=== PATIENT | female | born 1935 | race Caucasian/White ===

== ENCOUNTER 2016-08-24 18:20 | Observation (INO) | payer OTHER, MEDICARE ==
[~2016-08-24] VITALS: Ht 162.6 cm; Wt 75.7 kg
--- NOTE | 2016-08-24 18:42 | NUR ---
PT TO ED C/O HIGH BP, HEADACHE. STATES SHE SAW "A FLUTTER" IN HER RIGHT EYE, USED EYE DROPS AND IT WENT AWAY. THEN PT STATES SHE TOOK HER BP AND IT WAS 185/94. C/O "ZAP" TO RIGHT SIDE OF HEAD NOW. 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
--- NOTE | 2016-08-24 19:09 | ED GENERAL ADULT ---
History of Present Illness General Chief Complaint: Headache Stated Complaint: STATES HAS HIGH B/P WITH HOFFMAN Source: patient, family Exam Limitations: no limitations Vital Signs & Intake/Output Vital Signs & Intake/Output Vital Signs Date Time Temp Pulse Resp B/P B/P Pulse O2 O2 Flow FiO2 Mean Ox Delivery Rate 08/25 0018 96.8 76 20 170/80 97 Room Air 08/24 2320 97.0 73 16 187/89 95 Room Air 08/24 2226 71 12 174/86 98 Room Air 08/24 2141 174/82 08/24 2102 160/70 08/24 2102 174/82 08/24 1842 97.8 83 20 166/78 98 Room Air ED Intake and Output 08/25 0000 08/24 1200 Intake Total Output Total Balance Patient 167 lb Weight Weight Estimated Measurement Method Allergies Coded Allergies: cefaclor (UNKNOWN MD TOLD PT SHE IS ALLERGIC 08/24/16) epinephrine (HEART RACES 08/24/16) erythromycin base (UNKNOWN PER PT 08/24/16) Reconcile Medications Acetaminophen (Tylenol Extra Strength) 500 MG TABLET 2 TAB PO DAILY PRN PAIN (Reported) Aspirin (Ecotrin*) 81 MG TABLET.DR 1 TAB PO DAILY HEART/BLOOD (Reported) [BAKING SODA] 0.25 TSP PO PRN INDIGESTION (Reported) Cholecalciferol (Vitamin D3) (Vitamin D) 2,000 UNIT CAPSULE 2 CAP PO DAILY SUPPLEMENT (Reported) Mag Hydrox/Al Hydrox/Simeth (Maalox Advanced Suspension) (Unknown Strength) ORAL.SUSP (Unknown Dose) PO PRN INDIGESTION (Reported) Triage Note: PT TO ED C/O HIGH BP, HEADACHE. STATES SHE SAW "A FLUTTER" IN HER RIGHT EYE, USED EYE DROPS AND IT WENT AWAY. THEN PT STATES SHE TOOK HER BP AND IT WAS 185/94. C/O "ZAP" TO RIGHT SIDE OF HEAD NOW. 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 Triage Nurses Notes Reviewed? yes Onset: Gradual Duration: minute(s): (10) Timing: no prior history Injury Environment: home Severity: moderate Severity Numbers: 7 Modifying Factors: Improves With: other (TIME). HPI: Patient is an 81-year-old female presenting to the emergency department sheet complaining of right-sided headache, associated visual changes and hypertension And earlier today around 5:45 PM. Patient reports that she had just woken up from a nap and was sitting there and started getting some flutters in her right eye and then noticed some pain on the right side of her head that is sharp and stabbing in nature. Symptoms lasted about 10 minutes and then resolves. Patient did use eyedrops that it helped. Denies any current visual changes. Denies any confusion any change in capabilities of speaking, no weakness. No history of high blood pressure but she did take her blood pressure during these events and it was ABOUT 185/90. She just saw her primary care physician last for a checkup and her blood pressure was normal. She does not take any daily blood pressure medications. Denies any dizziness. History of stroke. No recent travel or surgeries. Denies any recent sinus congestion. No history of migraines. Denies any numbness or tingling. No weakness or pain in the arms or legs. Denies any jaw pain. Denies any associated chest pain shortness of breath or palpitations. No abdominal pain. She's been able TO EAT or drink without difficulties. Patient reports that pain has subsided, only lasted 10 minutes. (ANUSHKA MA) Past History Travel History Traveled to [place] past 21 day No Medical History Any Pertinent Medical History? see below for history Surgical History Surgical History: non-contributory Psychosocial History What is your primary language Zimbabwean Tobacco Use: Quit >30 days ago ETOH Use: denies use Illicit Drug Use: denies illicit drug use Family History Hx Contributory? No (ANUSHKA MA) Review of Systems Review of Systems Constitutional: Reports: no symptoms. Comments Review of systems: See HPI, All other systems negative. Constitutional, no chills fever or weight loss HEENT: No visual changes no sore throat no congestion Cardiovascular: No chest pain ,palpitation , orthopnea or ankle swelling Skin, no jaundice no rashes Respiratory: No dyspnea cough sputum or hemoptysis GI: No nausea no vomiting : No dysuria No hematuria Muscle skeletal: no back pain, no neck pain, Neurologic: No numbness no confusion Psych: No stress anxiety or depression,. Heme/endocrine: No bruising no bleeding no polyuria or polydipsia Immunology: No splenectomy or history of AIDS (ANUSHKA MA) Physical Exam Physical Exam General Appearance: well developed/nourished, no apparent distress, alert, awake , comfortable Comments: Well-developed well-nourished person in no acute distress HEENT: Normal EENT exam, extraocular motion intact, no nystagmus. Pupils equally round and reactive to light and accommodation. Nose is atraumatic. External auditory canal and Tympanic membranes clear. Pharynx normal. No swelling or edema. NO PAIN TO PALPATION OVER SCALP. Funduscopic: Somewhat limited secondary to no dilation prior to exam, NO OBVIOUS RETINAL DETACHMENT or venous NICKING. Neck: Supple, no lymphadenopathy, normal range of motion without pain or tenderness, NO C SPINE TENDERNESS. Back: Nontender Cardiovascular: Regular rate and rhythms no murmurs rubs or gallops, normal JVP Respiratory: Chest nontender. No respiratory distress.breath sounds clear to auscultation bilaterally Abdomen: Soft, nontender nondistended, no appreciable organomegaly. Normal bowel sounds. No ascites Extremity: MILD NON-PITTING edema, no calf tenderness to palpation, normal and equal pulses. Muscular strength is 5 out of 5 in upper and lower extremities bilaterally. Psychometrician strength is equal and symmetric bilaterally. Neuro: Alert oriented x3, motor sensory normal, cranial nerves II through XII grossly intact. Cerebellar testing is unremarkable. Able to perform finger to nose testing without difficulty. Skin: No appreciable rash on exposed skin, skin is warm and dry. Psych: Mood and affect is normal, memory and judgment is normal. Core Measures ACS in differential dx? Yes CVA/TIA Diagnosis: Yes Severe Sepsis Present: No Septic Shock Present: No (ANUSHKA MA) Progress Differential Diagnoses I considered the following diagnoses in my evaluation of the patient: CVA, TIA, OCULAR MIGRAINE, RETINAL DETACHMENT, MIGRAINE, HTN URGENCY, UNCONTROLLED HTN Plan of Care: Orders Procedure Date/time Status Heart Healthy Diet 08/25 B Active TROPONIN LEVEL 08/26 799 Active EKG 08/25 08 Active CBC WITHOUT DIFFERENTIAL 08/25 06 Active BASIC ELECTROLYTES PLUS BUN&CR 08/25 06 Active TROPONIN LEVEL 08/25 0200 Active EKG 08/25 0200 Active Pathway - chart 08/26 39 Active House Staff 08/26 39 Active Patient Data 08/26 39 Active Code Status 08/26 39 Active Lab Add-on Test 08/25 UNK Active VTE Mechanical Prophylaxis 08/25 UNK Active Telemetry/Plant Production Worker 08/25 UNK Active ECHOCARDIOGRAM 08/25 UNK Active Patient Data 08/[address] in observation 08/24 2136 Active ED Holding Orders 08/24 2136 Active Vital Signs 08/24 2136 Active Code Status 08/24 2136 Complete Add-on Test (ER Only) 08/24 2112 Active CULTURE,URINE 08/24 1933 Active PARTIAL THROMBOPLASTIN TIME 08/24 1908 Complete PROTHROMBIN TIME 08/24 1908 Complete Telemetry/Plant Production Worker 08/25 1907 Active URINALYSIS 08/25 1907 Complete TROPONIN LEVEL 08/25 1907 Complete MICROALBUMIN/CREATININE PANEL 08/25 1907 Active LYME TITRE 08/25 1907 Active COMPREHENSIVE METABOLIC PANEL 08/25 1907 Complete CBC WITHOUT DIFFERENTIAL 08/25 1907 Complete EKG 08/25 1907 Active NIH Stroke Scale 08/24 185 Active Intake & Output 08/24 184 Active Current Medications Sig/Leander Start time Last Medication Dose Stop Time Status Admin Amlodipine Besylate 10 MG DAILY 08/25 1000 AC (Norvasc) Aspirin Buffered 81 MG DAILY 08/25 1000 AC (Ecotrin) Acetaminophen 650 MG Q6P PRN 08/25 0045 UNVr (Tylenol) Acetaminophen/ 1 TAB Q6P PRN 08/25 0045 UNVr Hydrocodone Bitart (Vicodin) Oxycodone HCl 10 MG Q6P PRN 08/25 0045 UNVr (Roxicodone) Heparin Sodium 5,000 UNIT Q8 08/25 0039 UNVr (Porcine) Metoprolol Tartrate 5 MG ONCE ONE 08/25 0015 CAN (Lopressor) 08/25 0016 Senna/Docusate Sodium 2 TAB DAILY 08/25 0015 AC (Senokot S) Laboratory Tests 08/24/161933: Urine Color YEL, Urine Clarity CLEAR, Urine pH 6.0, Ur Specific [place] <= 1.005 , Urine Protein NEG, Urine Ketones NEG, Urine Nitrite NEG, Urine Bilirubin NEG, Urine Urobilinogen 0.2, Ur Leukocyte Esterase SMALL H, Ur Microscopic SEDIMENT EXAMINED, Urine RBC RARE, Urine WBC 1-3 H, Ur Epithelial Cells FEW, Urine Bacteria RARE H, Urine Hemoglobin TRACE-INTACT, Urine Glucose NEG 08/24/161922: Anion Gap 9, Estimated GFR 48 L, BUN/Creatinine Ratio 20.9, Glucose 91, Calcium 9.5, Total Bilirubin 0.6, AST 26, ALT 28, Alkaline Phosphatase 84, Troponin I < 0.01, Total Protein 7.3, Albumin 4.5, Globulin 2.8, Albumin/Globulin Ratio 1.6, PT 11.1, INR 1.06, APTT 29, Lyme Disease Antibody Pending 08/24/161907: CBC w Diff NO MAN DIFF REQ, RBC 4.18 L, MCV 88.8, MCH 29.6, RDW 13.0, MPV 9.2, Gran % 55.5, Lymphocytes % 30.6, Monocytes % 11.2 H, Eosinophils % 2.0, Basophils % 0.7, Absolute Granulocytes 3.4, Absolute Lymphocytes 1.9, Absolute Monocytes 0.7 H, Absolute Eosinophils 0.1, Absolute Basophils 0, PUBS MCHC 33.3 , Ur Random Creatinine Pending, Ur Random Microalbumin Pending, U Cystine/Creat Ratio Pending Microbiology 08/24 1933 URINE ROUT: Urine Culture - RECD Diagnostic Imaging: Viewed by Me: CT Scan. Discussed w/RAD: CT Scan. Radiology Impression: PATIENT: YARIEL DUPONT PRESENT AGE: 81 PATIENT ACCOUNT NO: [id number] : 36 LOCATION: [facility] ORDERING PHYSICIAN: ANUSHKA OLSON SERVICE DATE: 08/24/16 EXAM TYPE: CAT - CT HEAD WO IV CONTRAST EXAMINATION: CT HEAD WITHOUT CONTRAST CLINICAL INFORMATION: Hypertension with right-sided headache and visual changes. COMPARISON: 01/25/2013. TECHNIQUE: Contiguous axial imaging was performed from the skull base to vertex without intravenous administration of contrast. DLP: 614 mGy-cm FINDINGS: There is no evidence of acute intracranial hemorrhage or territorial infarction. No abnormal mass effect or midline shift is seen. Horowitz to white matter differentiation is well preserved. No extra-axial fluid collections are identified. The ventricles are normal in size. There is no abnormal attenuation within the brain parenchyma. There is hyperostosis frontalis internus. The osseous structures and soft tissues are normal. The mastoid air cells and visualized portions of the paranasal sinuses are well aerated. IMPRESSION: No acute intracranial pathology. DICTATED BY: ISABELLA SKINNER MD DATE/TIME DICTATED:08/24/161952 [employer] DATABASE MANAGER:ZEV DATE/TIME TRANSCRIBED:08/24/161952 CONFIDENTIAL, DO NOT COPY WITHOUT APPROPRIATE AUTHORIZATION. <Electronically signed in Other Vendor System> SIGNED BY: ISABELLA SKINNER MD 08/24/161958 CXR Impression: PATIENT: YARIEL DUPONT PRESENT AGE: 81 PATIENT ACCOUNT NO: [id number] : 36 LOCATION: [facility] ORDERING PHYSICIAN: ANUSHKA OLSON SERVICE DATE: 08/24/16-2058 EXAM TYPE: RAD - XRY- PORTABLE CHEST XRAY EXAMINATION: XR PORTABLE CHEST CLINICAL INFORMATION: Hypertension evaluate for cardiomegaly. COMPARISON: None TECHNIQUE: Portable frontal view of the chest was obtained. FINDINGS: Lung volumes are diminished. Heart does not appear significantly enlarged. No definite infiltrate is seen. IMPRESSION: Low lung volumes limits evaluation, no acute process. DICTATED BY: ISABELLA SKINNER MD Initial ED EKG: NSR (67 BPM) Comments: Patient still hypertensive in the emergency department. Asymptomatic at this time. CT, blood work, EKG unremarkable. Due to age and hypertension concerning for potential TIA. [facility] Neurology consultation. Patient stated on all lab work results and imaging study results. All questions answered. Patient did take an aspirin prior to arrival. GIVEN ASA AND AMLODIPINE FOR ELEVATED BP. D/W DR RODRIGUEZ, WHO SAW PT WELL AND SHE AGREES WITH PLAN. (ANUSHKA MA) Departure Departure Time of Disposition: 2117 Disposition: STILL A PATIENT Condition: Stable Clinical Impression Primary Impression: TIA (transient ischemic attack) Qualifiers: Transient cerebral ischemia type: unspecified Qualified Code: G45.9 - Transient cerebral ischemic attack, unspecified Secondary Impressions: Blood pressure elevated without history of HTN Referrals: BAUDILIO CONWAY,RAGHU Pulido (PCP/Family) Departure Forms: Customer Survey General Discharge Information Admission Note Spoke With: TEAGAN DODGE MD Documentation of Exam: Documentation of any treatments & extenuating circumstances including Concerns Regarding Discharge (functional status, medication knowledge or non-compliance, living conditions, etc.) that warrant an admission rather than observation: Patient requiring telemetry observation, carotid ultrasound, neurology consultation, monitor blood pressure potentially medicate for elevated blood pressure, discharge at this time and be medically harmful. Aspirin regimen. (ANUSHKA MA) Observation Note Spoke With: DAR MD,SITALAKSHMI Physician Advisor Notified: GAURAV CONWAY,NESTOR Pulido Place Patient In: Non-ED OBS Care Area Rationale for Observation: My rational for observation is as follows [TELE MONITOR, SERIAL EKG/TROPONIN, BLOOD PRESSURE CONTROL, CARDIOLOGY CONSULTATION, NEURO CONSULTATION]. PA/WINDOWS SERVER SUPPORT TECHNICIAN Co-Sign Statement Statement: ED Attending supervision documentation- [X] I saw and evaluated the patient. I have also reviewed all the pertinent lab results and diagnostic results. I agree with the findings and the plan of care as documented in the PA's/WINDOWS SERVER SUPPORT TECHNICIAN's documentation. [X] I have reviewed the ED Record and agree with the PA's/WINDOWS SERVER SUPPORT TECHNICIAN's documentation. [] Additions or exceptions (if any) to the PAs/WINDOWS SERVER SUPPORT TECHNICIAN's note and plan are summarized below: [] (JENNIFER CONWAY,JUAREZ) Critical Care Note Critical Care Note Critical Care Time: 30-74 min (ANUSHKA MA)
--- NOTE | 2016-08-24 19:39 | NUR ---
URINE TRIO SENT TO LAB.
[2016-08-24 19:41] LABS: ABSOLUTE BASOPHIL COUNT 0 /CUMM (0.0-0.2); ABSOLUTE EOSINOPHIL COUNT 0.1 /CUMM (0.0-0.7); ABSOLUTE GRANULOCYTE CT 3.4 /CUMM (1.4-6.5); ABSOLUTE LYMPH COUNT 1.9 /CUMM (1.2-3.4); ABSOLUTE MONOCYTE COUNT 0.7 /CUMM (0.10-0.60); BASOPHIL % 0.7 % (0.0-2.0); GRANULOCYTE % 55.5 % (42.2-75.2); HEMATOCRIT 37.2 % (37-47); MEAN CORPUSCULAR HGB 29.6 PG (27.0-31.0); MEAN CORPUSCULAR HGB CONC 33.3 G/DL (33.0-37.0); MEAN CORPUSCULAR VOLUME 88.8 FL (81.0-99.0); MEAN PLATELET VOLUME 9.2 FL (7.4-10.4); PLATELET COUNT 147 /CUMM (130-400); RED BLOOD CELL CT 4.18 /CUMM (4.20-5.40); WHITE BLOOD CELL COUNT 6.1 /CUMM (4.8-10.8)
[2016-08-24 19:54] LABS: PT 11.1 SEC (9.4-12.5); PTT 29 SEC (25-37)
--- NOTE | 2016-08-24 19:59 | CT SCAN REPORT ---
EXAMINATION: CT HEAD WITHOUT CONTRAST CLINICAL INFORMATION: Hypertension with right-sided headache and visual changes. COMPARISON: 01/25/2013. TECHNIQUE: Contiguous axial imaging was performed from the skull base to vertex without intravenous administration of contrast. DLP: 614 mGy-cm FINDINGS: There is no evidence of acute intracranial hemorrhage or territorial infarction. No abnormal mass effect or midline shift is seen. Horowitz to white matter differentiation is well preserved. No extra-axial fluid collections are identified. The ventricles are normal in size. There is no abnormal attenuation within the brain parenchyma. There is hyperostosis frontalis internus. The osseous structures and soft tissues are normal. The mastoid air cells and visualized portions of the paranasal sinuses are well aerated. IMPRESSION: No acute intracranial pathology.
[2016-08-24] MEDS ORDERED: VITAMIN D2000 UNIT PO (20:57)
[2016-08-24] MEDS ORDERED: ASPIRIN EC81 M1 PO (20:57)
[2016-08-24] MEDS ORDERED: TYLENOL EXTRA500 M2 PO (20:58)
[2016-08-24] MEDS ORDERED: MAALOX ADVANCE355 M2 PO (21:00)
[2016-08-24] MEDS ORDERED: BAKING SODA PO (21:00)
--- NOTE | 2016-08-24 21:55 | RADIOLOGY REPORT ---
EXAMINATION: XR PORTABLE CHEST CLINICAL INFORMATION: Hypertension evaluate for cardiomegaly. COMPARISON: None TECHNIQUE: Portable frontal view of the chest was obtained. FINDINGS: Lung volumes are diminished. Heart does not appear significantly enlarged. No definite infiltrate is seen. IMPRESSION: Low lung volumes limits evaluation, no acute process.
--- NOTE | 2016-08-24 22:44 | NUR ---
PT BED ASSIGNMENT 185-2
--- NOTE | 2016-08-24 23:18 | NUR ---
SAIMA NAVA GAVE REPORT TO SAIMA SARAVIA.
--- NOTE | 2016-08-24 23:19 | NUR ---
PTS DAUGHTER BRAULIO CELL PHONE [phone]
--- NOTE | 2016-08-24 23:27 | NUR ---
HOUSE STAFF IN FOR EVAL
--- NOTE | 2016-08-24 23:59 | NUR ---
PT WILL BE TRANSPORTED UPSTAIRS WITH THIS RN AND [facility]ST TIFF
--- NOTE | 2016-08-25 00:09 | History & Physical ---
LUIS SAGASTUME MD 08/25/16 0009: General Information and HPI MD Statement: I have seen and personally examined YARIEL DUPONT and documented this H&P. The patient is a 81 year old F who presented with a patient stated chief complaint of right sided headache. Source of Information: patient Exam Limitations: no limitations History of Present Illness: 81 year old female with PMH Sro[place]ens presents with sudden onset of right sided headache that she describes as burning and mostly affecting her right ear. The head pain was associated with eye fluttering and loss of clarity in her vision that lasted approximately less than ten minutes. She used eye drops that gave her relief and thought to check her blood pressure that she noted was high approximately 185/90. Earlier in the day she had been mowing the lawn out in the sun, took a nap and woke up with these symptoms. She denies any neurological symptoms, slurred speech, trouble walking, falls or extremity weakness, photo or phonophobia. At the time of presentation, she is asymptomatic except for persistent hypertension. She denies any changes in salt intake and is stressed about recent of her two months ago. ROS is otherwise negative besides constipation. She took a baby aspirin and home and was given more in the ER in addition to Norvasc which transiently lowered her blood pressure. Allergies/Medications Allergies: Coded Allergies: cefaclor (UNKNOWN MD TOLD PT SHE IS ALLERGIC 08/24/16) epinephrine (HEART RACES 08/24/16) erythromycin base (UNKNOWN PER PT 08/24/16) Home Med list Acetaminophen (Tylenol Extra Strength) 500 MG TABLET 2 TAB PO DAILY PRN PAIN (Reported) Aspirin (Ecotrin*) 81 MG TABLET.DR 1 TAB PO DAILY HEART/BLOOD (Reported) [BAKING SODA] 0.25 TSP PO PRN INDIGESTION (Reported) Cholecalciferol (Vitamin D3) (Vitamin D) 2,000 UNIT CAPSULE 2 CAP PO DAILY SUPPLEMENT (Reported) Mag Hydrox/Al Hydrox/Simeth (Maalox Advanced Suspension) (Unknown Strength) ORAL.SUSP (Unknown Dose) PO PRN INDIGESTION (Reported) Compliance With Home Meds: GOOD Past History Travel History Traveled to [place] past 21 day No Surgical History Surgical History: none (pilonodal cyst), non-contributory Past Family/Social History Family History Relations & Conditions if any MOTHER FH: uterine cancer Psychosocial History ETOH Use: denies use Illicit Drug Use: denies illicit drug use Review of Systems Review of Systems Constitutional: Reports: no symptoms. GI: Reports: constipation. Comments ROS positive for constipation but otherwise negative Exam & Diagnostic Data Last 24 Hrs of Vital Signs/I&O Vital Signs Date Time Temp Pulse Resp B/P B/P Pulse O2 O2 Flow FiO2 Mean Ox Delivery Rate 08/24 2320 97.0 73 16 187/89 95 Room Air 08/24 2226 71 12 174/86 98 Room Air 08/24 2141 174/82 08/24 2102 160/70 08/24 2102 174/82 08/24 1842 97.8 83 20 166/78 98 Room Air Intake & Output 08/25 0800 07 0000 08/24 1600 Intake Total Output Total Balance Patient 167 lb Weight Weight Estimated Measurement Method Physical Exam General Appearance Alert, Oriented X3, Cooperative, No Acute Distress Skin No Rashes, No Breakdown Skin Temp/Moisture Exam: Warm/Dry Sepsis Skin Exam (color): Normal for Ethnicity HEENT Atraumatic, PERRLA, EOMI, Mucous Membr. moist/pink Neck Supple, No JVD, +2 Carotid Pulse wo Bruit Lymphatic Cervical nl Cardiovascular Regular Rate, Normal S1, Normal S2, No Murmurs Lungs Clear to Auscultation, Normal Air Movement Abdomen Normal Bowel Sounds, Soft, No Tenderness, No Masses Neurological Normal Gait, Normal Speech, Strength at 5/5 X4 Ext, Normal Tone, Sensation Intact, Cranial Nerves 3-12 NL, Reflexes 2+ Extremities No Clubbing, No Cyanosis, No Edema, Normal Pulses, No Tenderness/ Swelling Vascular Normal Pulses, Pulses Symmetrical Last 24 Hrs of Labs/Cezar: Laboratory Tests 08/24/161933: Urine Color YEL, Urine Clarity CLEAR, Urine pH 6.0, Ur Specific [place] <= 1.005 , Urine Protein NEG, Urine Ketones NEG, Urine Nitrite NEG, Urine Bilirubin NEG, Urine Urobilinogen 0.2, Ur Leukocyte Esterase SMALL H, Ur Microscopic SEDIMENT EXAMINED, Urine RBC RARE, Urine WBC 1-3 H, Ur Epithelial Cells FEW, Urine Bacteria RARE H, Urine Hemoglobin TRACE-INTACT, Urine Glucose NEG 08/24/161922: Anion Gap 9, Estimated GFR 48 L, BUN/Creatinine Ratio 20.9, Glucose 91, Calcium 9.5, Total Bilirubin 0.6, AST 26, ALT 28, Alkaline Phosphatase 84, Troponin I < 0.01, Total Protein 7.3, Albumin 4.5, Globulin 2.8, Albumin/Globulin Ratio 1.6, PT 11.1, INR 1.06, APTT 29, Lyme Disease Antibody Pending 08/24/161907: CBC w Diff NO MAN DIFF REQ, RBC 4.18 L, MCV 88.8, MCH 29.6, RDW 13.0, MPV 9.2, Gran % 55.5, Lymphocytes % 30.6, Monocytes % 11.2 H, Eosinophils % 2.0, Basophils % 0.7, Absolute Granulocytes 3.4, Absolute Lymphocytes 1.9, Absolute Monocytes 0.7 H, Absolute Eosinophils 0.1, Absolute Basophils 0, PUBS MCHC 33.3 Microbiology 08/24 1933 URINE ROUT: Urine Culture - RECD Diagnostic Data EKG Results NSR, LVH CXR Results diminished lung volumes but unremarkable Other Results CT Head no acute intracranial pathology Assessment/Plan Assessment: 81 year old female with noncontributory PMH presents with sudden onset of right sided headache, hypertension and brief visual change. Admitted for management of hypertensive urgency versus a transient ischemic attack (unlikely given history and exam). 1: TIA?: CT head negative for hemorrage and normal neurological exam at the time of physical exam in the ED. Patient never describes a focal neurological deficit in the history Admit to telemetry, continue to monitor vital signs and cardiac rhythm Check AM lipid panel Consider statin therapy Monitor neurochecks, if patient develops neurological symptoms, will check carotid doppler otherwise low clinical suspicion for TIA/CVA 2. Hypertensive Urgency: new HTN in setting of headache and elevated creatinine. goal to reduce MAP by ~20% over 24 hours. patient received amlodipine in ED with minimal response. IV labetalol 5mg and reassess blood pressure. LVH on EKG possible undiagnosed HTN although patient reports taking BP at home with and has historically been <130 Continue 10mg PO amlodipine Cardiology consult in AM Echocardiogram Trend troponins/EKG Check thyroid function 3. Abnormal creatinine: creatinine 1.1 currently, BUN:Cr ration 20.9 Repeat renal function, trend creatinine and basic electrolyte panel in AM If renal function improves can consider MERA therapy for HTN 4. Constipation: Dulcolax and Senna Heart healthy diet DVT ppx-heparin subq Full code As Ranked By This Provider Problem List: 1. TIA (transient ischemic attack) Qualifiers Transient cerebral ischemia type: unspecified Qualified Code: G45.9 - Transient cerebral ischemic attack, unspecified 2. Blood pressure elevated without history of HTN 3. Hypertensive urgency Core Measures/Miscellaneous Acute Coronary Syndrome ACS Diagnosis: No Cerebrovascular Accident CVA/TIA Diagnosis: No NIH Stroke Scale: Total 0 Date Last Known Well: 08/25/16 Time Last Known Well: 0334 AFIB: No Aflutter: No Anticoagulant: Yes (aspirin) Evidence of Atherosclerosis: No LDL Assessed Within 24 Hours: Yes Currently on Statin: No Rehab Needs Assessed: No PT Consult Ordered: No Comment: no deficit Congestive Heart Failure CHF Diagnosis: No VTE (View Protocol) VTE Risk Factors: Acute medical illness, Age > 40 No [facility] VTE prophylaxis d/t: No contraindications No VTE Pharm Prophylaxis d/t: No contraindications VTE Diagnosis: No VTE Type: NONE VTE Confirmed by (Test): NONE Sepsis (View Protocol) Severe Sepsis Present: No Septic Shock Septic Shock Present: No Miscellaneous Documentation Attending Case Discussed With: LIDIA DODGE MDJohn Primary Care Physician: RAGHU ASTUDILLO MD Patient sees these Specialists none Level of Patient Care: Telemetry MIN TAYLOR 08/25/16 0037: Resident Review Statement Resident Statement: examined this patient, discussed with it intern, agreed with it intern Other Findings: Patient is 81-year-old female with no significant past medical history came with chief complaint of blurring of patient and high blood pressure for 1 day. According to patient she mowed her lawn today and then she felt temporarily that her vision wasn't that clear for 5-10 minutes and later on she felt better. She checked her blood pressure and it was 180s systolic which was very high for her as usually her blood pressure stays in 110s. She also felt some hardness of right side of her face but denied any facial droop, slurring of her speech, worsening headache, dizziness, nausea, vomiting, cough, chest pain, palpitations, any urinary complaints. She had history of constipation. She denied any recent fall, any numbness or tingling in her face or extremities. She lost her on June 24 denied any insomnia or anxiety and depression. Vital signs on admission were temperature 97.6, pulse 83, respiratory rate 20, blood pressure 166/78 dictated on up to 174/82 and she was saturating 98% on room air. Labs were WBC count 6.1, hemoglobin 12.4, hematocrit 37.2, platelet count 147, sodium 138, potassium 4.2, BUN/creatinine 23, creatinine 1.1 EKG was normal sinus rhythm with no acute ST-T wave changes CT was negative for any acute intracranial pathology Chest x-ray showed low lung volumes no acute cardiopulmonary pathology Physical examination Agent is alert and oriented 3 Neck supple no JVD Head atraumatic Chest clear to auscultate Heart S1-S2 normal no added sounds Abdomen soft normal bowel sounds Extremities show no cyanosis, trace edema Neurological examination showed no neurological deficit, Lula is 2-12 intact. Assessment and plan Patient is 81-year-old female with nonsignificant past medical history came with right sidedc blurring of her vision and elevated blood pressure likely hypertensive urgency We will observe patient on telemetry floor for 24 hours and will take care for the following problems Problem 1 elevated blood pressure most likely hypertensive urgency 1. She was given oral amlodipine in ED with no significant lowering of her blood pressure. We will give patient IV dose of labetalol and will monitor her blood pressure closely overnight. Our target would be 10-20% lowering of her blood pressure from her baseline initially and 25% lowering in next 24 hours. --Symptoms are not typical for TIA. We will monitor her closely and if at any point she showed any symptoms stable of TIA we Might consider doing TIA/stroke workup including carotid ultrasound and neurology evaluation. --We'll repeat her labs in a.m. Problem #2 elevated creatinine We don't have any previous labs is not sure that's creatinine is chronic or acute. We will monitor her labs in a.m. and we will check her microalbumin, creatinine albumin ratio urea if elevated will consider starting her on lisinopril. Problem #3 constipation We will give patient a laxative as needed for constipation Heart healthy diet Pharmacological DVT prophylaxis Patient is full code DAR [place], [facility] 08/25/16 0253: Attending MD Review Statement Attending Statement Attending MD Statement: examined this patient, discuss w/resident/PA/CORPORATE SERVICES MANAGER, agreed w/resident/PA/CORPORATE SERVICES MANAGER Attending Assessment/Plan: 81 yo F with no previous h/o hypertension, h/o Sjogren's syndrome, heartburn, presents to the ER for evaluation of high BP. Patient reports, she mowed the lawn today after which she took a nap. Soon after she woke up, she noticed fluttering of the right eye with transient loss of clarity, this lasted for less than minutes and was followed by burning sensation around the right ear and face. She used systane lubricant eye drops with relief of symptoms, she then checked her BP which was 185/90. Generally her BP has been stable around 110-130 's/ 80-90. She denied slurring of speech, facial droop, tingling, numbness, lightheadedness, headache, chest pain, palpitations or paresis. Of note, she is grieving loss of her (June 2016), she lives alone and independent with her ADLs. No previous h/o TIA or stroke. On review of records, patient was seen in ER (Jan 2013) for numbness and headache, BP was elevated but she was not sent home on any antihypertensives. Vitals stable except for BP 174/82 --> 187/89 --> 170/80 after receiving amlodipine 10 mg in ER. Nonfocal neuro exam, visual mcdonough intact, speech clear, no pronator drift, no cranial deficit, power 5/5, sensation intact, reflexes 2+, gait steady, cerebellar signs neg. Labs: BUN 23, creat 1.1 (baseline 0.9-1.0), trop neg. UA clear. EKG: SR, no acute changes. CT head neg, CXR: neg. 1. Accelerated hypertension/ hypertensive urgency. Tele 23 Obs, monitor for arrhythmias, serial EKG and troponin, Echo, we gave labetalol 5 mg with subsequent drop of BP from 170/80 to 140/70. We will continue with amlodipine 10 mg from AM. Obtain Cardio consult in AM. Continue aspirin. Check lipid panel, TSH, free T4. Her symptoms are not suggestive of a TIA or stroke, hence we are holding off on workup for the same. Monitor neurochecks. If there is recurrence of symptoms, we will consider Carotid dopplers, Neuro eval. 2. CKD stage 3A vs. LACEY. Follow renal functions. 3. Treat constipation. DVT ppx Hep SC. Full code. Observation Initial Note - I have personally examined YARIEL DUPONT on 08/25/16 at 0612. The disposition of YARIEL DUPONT is uncertain at this time and before a determination can be made, she requires a period of observation for the following reasons [Hypertensive urgency]
[2016-08-25 00:18] VITALS: BP 170/80
[2016-08-25 01:11] VITALS: BP 140/70
[2016-08-25 06:49] VITALS: BP 150/70
--- NOTE | 2016-08-25 08:27 | PN- Housestaff ---
Subjective Follow-up For: TIA HYPERTENSIVE URGENCY Complaints: no complaints Tele-Events Since Last Visit: OVERNIGHT NSR 64-76 NO EVENTS Subjective: PATIENT WAS EXAMINED BEDSIDE. No complaints overnight, patient sitting comfortably in bed. Review of Systems Constitutional: Reports: no symptoms. EENTM: Reports: no symptoms. Cardiovascular: Reports: no symptoms. Respiratory: Reports: no symptoms. Gastrointestinal: Reports: constipation. Genitourinary: Reports: no symptoms. Musculoskeletal: Reports: no symptoms. Skin: Reports: no symptoms. Neurological/Psychological: Reports: anxiety. Denies: headache. Objective Last 24 Hrs of Vital Signs/I&O Vital Signs Date Time Temp Pulse Resp B/P B/P Pulse O2 O2 Flow FiO2 Mean Ox Delivery Rate 08/25 0946 73 140/60 / 0649 97.8 73 20 150/70 98 Room Air 08/25 0111 68 140/70 08/25 0049 72 170/80 07/ 0018 96.8 76 20 170/80 97 Room Air 08/24 2320 97.0 73 16 187/89 95 Room Air 08/24 2226 71 12 174/86 98 Room Air 08/24 2141 174/82 07 2102 160/70 07/03 2102 174/82 / 1842 97.8 83 20 166/78 98 Room Air Intake & Output 08/25 1600 /04 0800 / 0000 Intake Total 200 Output Total 400 Balance -200 Intake, Oral 200 Output, Urine 400 Patient 167 lb 167 lb Weight Weight Estimated Measurement Method Physical Exam General Appearance: Alert, Oriented X3, Cooperative, No Acute Distress Skin: No Rashes, No Breakdown, No Significant Lesion Skin Temp/Moisture Exam: Warm/Dry Sepsis Skin Exam (color): Normal for Ethnicity HEENT: Atraumatic, PERRLA, EOMI, Mucous Membr. moist/pink Neck: Supple, No JVD, No thryomegaly Cardiovascular: Regular Rate, Normal S1, Normal S2, No Murmurs, Gallops, Rubs Lungs: Clear to Auscultation, Normal Air Movement Abdomen: Normal Bowel Sounds, Soft, No Tenderness Neurological: Normal Speech, Strength at 5/5 X4 Ext, Normal Tone, Sensation Intact Extremities: No Clubbing, No Cyanosis, No Edema, Normal Pulses Vascular: Normal Pulses, Pulses Symmetrical Sepsis Peripheral Pulse Location: Radial Sepsis Peripheral Pulse Exam: Normal Current Medications: Current Medications Sig/Leander Start time Last Medication Dose Route Stop Time Status Admin Acetaminophen 650 MG Q6P PRN 08/25 44 AC PO Acetaminophen/ 1 TAB Q6P PRN 08/25 44 AC Hydrocodone Bitart PO Amlodipine Besylate 10 MG DAILY 08/25 1000 AC 08/25 PO 0946 Amlodipine Besylate 0 .STK-MED ONE 08/24 2145 DC PO Amlodipine Besylate 10 MG ONCE ONE 08/24 2144 DC 08/24 PO 08/24 Aspirin 0 .STK-MED ONE 08/24 2145 DC PO Aspirin 243 MG ONCE ONE 08/24 2129 DC 08/24 PO 08/24 Aspirin Buffered 81 MG DAILY 08/25 1000 AC 08/25 PO 0946 Bisacodyl 5 MG ONE ONE 08/25 0130 DC 08/25 PO 08/25 0131 0129 Heparin Sodium 5,000 UNIT Q8 08/25 0039 AC (Porcine) SC Labetalol HCl 5 MG ONCE ONE 08/25 0030 DC 08/25 IV 08/25 0031 0049 Metoprolol Tartrate 5 MG ONCE ONE 08/25 0015 CAN IV 08/25 0016 Oxycodone HCl 10 MG Q6P PRN 08/25 44 AC PO Senna/Docusate Sodium 2 TAB DAILY 08/25 001 AC 08/25 PO 0946 Last 24 Hrs of Lab/Cezar Results Last 24 Hrs of Labs/Mics: Laboratory Tests 08/25/16 0200: Troponin I < 0.01 08/24/16 1934: Urine Color YEL, Urine Clarity CLEAR, Urine pH 6.0, Ur Specific [place] <= 1.005 , Urine Protein NEG, Urine Ketones NEG, Urine Nitrite NEG, Urine Bilirubin NEG, Urine Urobilinogen 0.2, Ur Leukocyte Esterase SMALL H, Ur Microscopic SEDIMENT EXAMINED, Urine RBC RARE, Urine WBC 1-3 H, Ur Epithelial Cells FEW, Urine Bacteria RARE H, Urine Hemoglobin TRACE-INTACT, Urine Glucose NEG 08/24/161922: Anion Gap 9, Estimated GFR 48 L, BUN/Creatinine Ratio 20.9, Glucose 91, Calcium 9.5, Total Bilirubin 0.6, AST 26, ALT 28, Alkaline Phosphatase 84, Troponin I < 0.01, Total Protein 7.3, Albumin 4.5, Globulin 2.8, Albumin/Globulin Ratio 1.6, PT 11.1, INR 1.06, APTT 29, Lyme Disease Antibody Pending 08/24/161907: CBC w Diff NO MAN DIFF REQ, RBC 4.18 L, MCV 88.8, MCH 29.6, RDW 13.0, MPV 9.2, Gran % 55.5, Lymphocytes % 30.6, Monocytes % 11.2 H, Eosinophils % 2.0, Basophils % 0.7, Absolute Granulocytes 3.4, Absolute Lymphocytes 1.9, Absolute Monocytes 0.7 H, Absolute Eosinophils 0.1, Absolute Basophils 0, PUBS MCHC 33.3 , Ur Random Creatinine 41.3, Ur Random Microalbumin < 0.6, U Cystine/Creat Ratio 14.52 Microbiology 08/24 1933 URINE ROUT: Urine Culture - RES Orders EKG Findings: NSR LVH SIGNS ECHO Findings: CAROTID DOPPLER ULTRASOUND ORDERED ECHOCARDIOGRAPHY ORDERED AND PENDING Radiology Findings: HEAD CT IMPRESSION: No acute intracranial pathology. Lines/Diet/Fluids Fluids/Infusions: none Catheters/Tubes: none
--- NOTE | 2016-08-25 11:29 | PN-Observation ---
See Addendum Observation Note Observation Note _ I have personally examined YARIEL DUPONT. her disposition is uncertain at this time. Before a determination can be made, she requires continued observation for the following reasons HYPERTENSIVE URGENCY VS TIA Assessment/Plan Problem List: 1. Hypertensive urgency 2. TIA (transient ischemic attack) Qualifiers Transient cerebral ischemia type: unspecified Qualified Code: G45.9 - Transient cerebral ischemic attack, unspecified 3. Hypertension Plan: ASSESSMENT 81 year old female with PMH SJOGRENS presents with sudden onset of right sided headache and ear pain for 10 minutes, hypertension and brief visual change. Admitted for management of hypertensive urgency versus a transient ischemic attack. 1. HYPERTENSIVE URGENCY VS TIA 2. CONSTIPATION 3. ABNORMAL KIDNEY FUNCTION PLAN 1: TIA VS HYPERTENSIVE URGENCY: HTN IN SETTING OF HEADACHE AND ELEVATED CR. CT head negative for hemorrage and normal neurological exam at the time of physical exam in the ED. LVH ON EKG POSSIBLY UNDIAGNOSED HTN. Patient never describes a focal neurological deficit in the history or a history of high blood pressure. Hypertensive to 187/89 in ED. Troponins negative x3. Given metoprolol and labetolol to good effect. Currenly good blood pressure control and normal heart rate and rhythm. Continue to monitor vital signs and cardiac rhythm REDUCE MAP BY 20% OVER 24 HOURS Continue Wait for cardiology consult re: echo and carotid doppler results Check AM lipid panel and consider statins? Check thyroid function tests Monitor neurochecks, if patient develops neurological symptoms If symptoms return consider ESR for giant cell arteritis Continue 10mg PO amlodipine 2. Constipation: Dulcolax and Senna 3. Abnormal creatinine: creatinine 1.1 currently Trend creatinine and basic electrolyte panel in AM If renal function improves can consider MERA therapy for HTN Heart healthy diet DVT ppx-heparin subq Full code DVT/Prophylaxis: pharmacological Consulting Request: Consulting Specialty: Cardiology Discharge Plan Discharge Disposition: home Subjective Follow-up For: TIA VS HYPERTENSIVE URGENCY CONSTIPATION ABNORMAL KIDNEY FUNCTION Complaints: pain scale (0-10) Tele-Events Since Last Visit: OVERNIGHT NSR 64-76 NO EVENTS Subjective: PATIENT WAS EXAMINED BEDSIDE. No complaints overnight, patient sitting comfortably in bed Review of Systems Constitutional: Denies: no symptoms. EENTM: Denies: no symptoms. Cardiovascular: Denies: no symptoms. Respiratory: Denies: no symptoms. Gastrointestinal: Reports: constipation. Genitourinary: Denies: no symptoms. Musculoskeletal: Denies: no symptoms. Skin: Denies: no symptoms. Neurological/Psychological: Denies: no symptoms. Objective Last 24 Hrs of Vital Signs/I&O Vital Signs Date Time Temp Pulse Resp B/P B/P Pulse O2 O2 Flow FiO2 Mean Ox Delivery Rate 08/25 0946 73 140/60 08/25 0649 97.8 73 20 150/70 98 Room Air 08/25 0111 68 140/70 08/25 0049 72 170/80 08/25 0018 96.8 76 20 170/80 97 Room Air 08/24 2320 97.0 73 16 187/89 95 Room Air 08/24 2226 71 12 174/86 98 Room Air 08/24 2141 174/82 08/24 2102 160/70 08/24 2102 174/82 08/24 1842 97.8 83 20 166/78 98 Room Air Intake & Output 08/25 1600 08/25 0800 08/25 0000 Intake Total 200 Output Total 400 Balance -200 Intake, Oral 200 Output, Urine 400 Patient 167 lb 167 lb Weight Weight Estimated Measurement Method Physical Exam General Appearance: Alert, Oriented X3, Cooperative, No Acute Distress Skin: No Rashes, No Breakdown, No Significant Lesion Skin Temp/Moisture Exam: Warm/Dry Sepsis Skin Exam (color): Normal for Ethnicity HEENT: Atraumatic, PERRLA, EOMI, Mucous Membr. moist/pink Neck: Supple, No JVD Cardiovascular: Regular Rate, Normal S1, Normal S2, No Murmurs, Gallops, Rubs Lungs: Clear to Auscultation, Normal Air Movement Abdomen: Normal Bowel Sounds, Soft, No Tenderness, No Hepatospenomegaly, No Masses Neurological: Normal Speech, Normal Tone, Sensation Intact Extremities: No Clubbing, No Cyanosis, No Edema, Normal Pulses, No Tenderness/ Swelling Vascular: Normal Pulses, Pulses Symmetrical Sepsis Peripheral Pulse Location: Radial Sepsis Peripheral Pulse Exam: Normal Current Medications: Current Medications Sig/[place] Start time Last Medication Dose Route Stop Time Status Admin Acetaminophen 650 MG Q6P PRN 08/25 0045 AC PO Acetaminophen/ 1 TAB Q6P PRN 08/25 0045 AC Hydrocodone Bitart PO Amlodipine Besylate 10 MG DAILY 08/25 1000 AC 08/25 PO 0946 Amlodipine Besylate 0 .STK-MED ONE 08/24 2145 DC PO Amlodipine Besylate 10 MG ONCE ONE 08/24 2144 DC 08/24 PO 08/24 Aspirin 0 .STK-MED ONE 08/24 2145 DC PO Aspirin 243 MG ONCE ONE 08/24 2129 DC 08/24 PO 08/24 Aspirin Buffered 81 MG DAILY 08/25 1000 AC 08/25 PO 0946 Bisacodyl 5 MG ONE ONE 08/25 0130 DC 08/25 PO 08/25 130 0129 Heparin Sodium 5,000 UNIT Q8 08/25 0039 AC (Porcine) SC Labetalol HCl 5 MG ONCE ONE 08/25 0030 DC 08/25 IV 08/25 0031 0049 Metoprolol Tartrate 5 MG ONCE ONE 08/25 0015 CAN IV 08/25 0016 Oxycodone HCl 10 MG Q6P PRN 08/25 0045 AC PO Senna/Docusate Sodium 2 TAB DAILY 08/25 0015 AC 08/25 PO 0946 Last 24 Hrs of Labs/Mics: Laboratory Tests 08/25/16 0200: Troponin I < 0.01 08/24/16 193: Urine Color YEL, Urine Clarity CLEAR, Urine pH 6.0, Ur Specific [place] <= 1.005 , Urine Protein NEG, Urine Ketones NEG, Urine Nitrite NEG, Urine Bilirubin NEG, Urine Urobilinogen 0.2, Ur Leukocyte Esterase SMALL H, Ur Microscopic SEDIMENT EXAMINED, Urine RBC RARE, Urine WBC 1-3 H, Ur Epithelial Cells FEW, Urine Bacteria RARE H, Urine Hemoglobin TRACE-INTACT, Urine Glucose NEG 08/24/161922: Anion Gap 9, Estimated GFR 48 L, BUN/Creatinine Ratio 20.9, Glucose 91, Calcium 9.5, Total Bilirubin 0.6, AST 26, ALT 28, Alkaline Phosphatase 84, Troponin I < 0.01, Total Protein 7.3, Albumin 4.5, Globulin 2.8, Albumin/Globulin Ratio 1.6, PT 11.1, INR 1.06, APTT 29, Lyme Disease Antibody Pending 08/24/161907: CBC w Diff NO MAN DIFF REQ, RBC 4.18 L, MCV 88.8, MCH 29.6, RDW 13.0, MPV 9.2, Gran % 55.5, Lymphocytes % 30.6, Monocytes % 11.2 H, Eosinophils % 2.0, Basophils % 0.7, Absolute Granulocytes 3.4, Absolute Lymphocytes 1.9, Absolute Monocytes 0.7 H, Absolute Eosinophils 0.1, Absolute Basophils 0, PUBS MCHC 33.3 , Ur Random Creatinine 41.3, Ur Random Microalbumin < 0.6, U Cystine/Creat Ratio 14.52 Microbiology 08/24 1933 URINE ROUT: Urine Culture - RES
[2016-08-25 13:07] LABS: ABSOLUTE BASOPHIL COUNT 0 /CUMM (0.0-0.2); ABSOLUTE EOSINOPHIL COUNT 0.1 /CUMM (0.0-0.7); ABSOLUTE LYMPH COUNT 1.6 /CUMM (1.2-3.4); ABSOLUTE MONOCYTE COUNT 0.6 /CUMM (0.10-0.60); BASOPHIL % 0.7 % (0.0-2.0); EOSINOPHIL % 1.8 % (0-5); GRANULOCYTE % 56.3 % (42.2-75.2); HEMATOCRIT 38.7 % (37-47); MEAN CORPUSCULAR HGB 29.6 PG (27.0-31.0); MEAN CORPUSCULAR HGB CONC 33.2 G/DL (33.0-37.0); MEAN CORPUSCULAR VOLUME 89.2 FL (81.0-99.0); MEAN PLATELET VOLUME 9.6 FL (7.4-10.4); PLATELET COUNT 160 /CUMM (130-400); RBC DISTRIBUTION WIDTH 13.1 % (11.5-14.5); RED BLOOD CELL CT 4.34 /CUMM (4.20-5.40); WHITE BLOOD CELL COUNT 5.4 /CUMM (4.8-10.8)
[2016-08-25 15:10] VITALS: BP 104/70
--- NOTE | 2016-08-25 16:13 | Event Note ---
Event Note Event Note: The patient needs an Echocardiogram, Carotid USG and cardiology evaluation prior to discharge. The imaging studies could not be done today due to holiday. After discussing the same with supportive employment case manager Jaleesa(ER), her Observation status was extended to 48 hrs. She can be discharged tomorrow if the above workup is ngative.
[2016-08-25 22:20] VITALS: BP 100/62
[2016-08-26 07:28] VITALS: BP 100/62
--- NOTE | 2016-08-26 09:36 | Cons- Cardiology ---
General Information and HPI Consulting Request Date of Consult: 08/26/16 Requested By: DAR CONWAY,[email or web address] Reason for Consult: ECHO for possible TIA Source of Information: patient Exam Limitations: no limitations History of Present Illness: This is an 81-year-old very pleasant lady with Sjogren's syndrome as her only known past medical history presented to [facility] for evaluation of symptomatic elevated blood pressure. Patient reported waking up from an afternoon nap around 5 PM with symptoms of right eye vision distortion and seeing "flutters", this episode lasted about 10 minutes and was relieved by administration of her Systane eyedrops. Associated symptoms also included stabbing right sided headache with burning sensation around the right ear and face. Patient reported checking her blood pressure at home and obtaining a reading of 185/90 and therefore decided to present for evaluation. Earlier that day, patient stated that she was outside mowing the lawn. She did deny any chest pain, palpitation, nausea/vomitinh, dyspnea, and diaphoresis. Patient also did not endorse any focal neurological deficits including facial drooping, speech impairment, tremor , or numbness/weakness. Regarding her blood pressure, patient states that she frequently checks it at home and is normally not elevated. She is followed by her mapping engineer (Dr. Ashton) which is also her PCP and her clinic BP measurements have always been WNL , not requiring initiation of BP meds. Patient reports a remote history of being evaluated by a estate tax examiner (Dr. 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 She reports that once she quit her job her symptoms eventually subsided after about 5 years. She does report quiting smoking about 30 years after smoking for about 30 years (1-2 packs daily). She does not recall how family history however she suggested a mother probably of cardiac disease at age 87. At the ED Vitals were stable except for BP 174/82 --> 187/89 --> 170/80 despite receiving amlodipine 10 mg. IV labetalol 5 mg was administered which dropped her BP to 140/70. Physical exam was unremarkable including no neurological focality noted. Allergies/Medications Allergies: Coded Allergies: cefaclor (UNKNOWN MD TOLD PT SHE IS ALLERGIC 08/24/16) epinephrine (HEART RACES 08/24/16) erythromycin base (UNKNOWN PER PT 08/24/16) Home Med List: Acetaminophen (Tylenol Extra Strength) 500 MG TABLET 2 TAB PO DAILY PRN PAIN (Reported) [BAKING SODA] 0.25 TSP PO PRN INDIGESTION (Reported) Cholecalciferol (Vitamin D3) (Vitamin D) 2,000 UNIT CAPSULE 2 CAP PO DAILY SUPPLEMENT (Reported) Past History Travel History Traveled to [place] past 21 day No Medical History Blood Transfusion Hx: No Neurological: NONE EENT: NONE Cardiovascular: hypertension Respiratory: NONE Gastrointestinal: NONE Hepatic: NONE Renal: NONE Musculoskeletal: NONE Psychiatric: NONE Endocrine: NONE Blood Disorders: NONE Cancer(s): NONE COST REDUCTION ENGINEER/Reproductive: NONE Surgical History Surgical History: non-contributory, 1 (pilonodal cyst) Family History Relations & Conditions If Any: MOTHER FH: uterine cancer Psychosocial History Smoking Status: Former Smoker ETOH Use: denies use Illicit Drug Use: denies illicit drug use Exam & Diagnostic Data Vital Signs and I&O Vital Signs Date Time Temp Pulse Resp B/P B/P Pulse O2 O2 Flow FiO2 Mean Ox Delivery Rate 08/27 727 97.8 75 18 100/62 94 Room Air 08/25 2220 98.1 73 14 100/62 96 Room Air / 1600 97 Room Air 08/25 1510 98.6 76 20 104/70 95 Room Air 08/25 0946 73 140/60 Intake & Output 08/26 1600 07 0800 07/05 0000 / 1600 08/25 0800 08/25 0000 Intake Total 480 200 Output Total 400 Balance 480 -200 Intake, Oral 480 200 Number 1 Bowel Movements Output, Urine 400 Patient 75.75 kg 75.75 kg Weight Weight Estimated Measurement Method Physical Exam: General Appearance: Alert, Oriented X3, Cooperative, No Acute Distress Skin: No Rashes, No Breakdown, No Significant Lesion Skin Temp/Moisture Exam: Warm/Dry HEENT: Atraumatic, PERRLA, EOMI, Mucous Membr. moist/pink Neck: Supple, No JVD Cardiovascular: Regular Rate, Normal S1, Normal S2, No Murmurs, Gallops, Rubs Lungs: Clear to Auscultation, Normal Air Movement Abdomen: Normal Bowel Sounds, Soft, No Tenderness, No Hepatospenomegaly, No Masses Neurological: Normal Speech, Normal Tone, Sensation Intact. Strength 5/5 b/l U/ LE. CN II-XII grossly intact. Extremities: No Clubbing, No Cyanosis, No Edema, Normal Pulses, No Tenderness/ Swelling Vascular: Normal Pulses, Pulses Symmetrical Sepsis Peripheral Pulse Location: Radial Sepsis Peripheral Pulse Exam: Normal Labs/Cezar Results: Vital Signs Date Time Temp Pulse Resp B/P B/P Pulse O2 O2 Flow FiO2 Mean Ox Delivery Rate 08/27 727 97.8 75 18 100/62 94 Room Air 08/25 2220 98.1 73 14 100/62 96 Room Air 08/25 1600 97 Room Air 08/25 1510 98.6 76 20 104/70 95 Room Air Intake & Output 08/26 1600 08/26 0800 08/26 0000 Intake Total Output Total Balance Number 1 Bowel Movements Laboratory Tests 08/26 08/25 08/25 1033 1155 1155 Chemistry Sodium (137 - 145 mmol/L) 142 Potassium (3.5 - 5.1 mmol/L) 4.4 Chloride (98 - 107 mmol/L) 106 Carbon Dioxide (22 - 30 mmol/L) 25 Anion Gap (5 - 16) 11 BUN (7 - 17 mg/dL) 18 H Creatinine (0.5 - 1.0 mg/dL) 0.9 Estimated GFR (>60 ml/min) > 60 BUN/Creatinine Ratio (7 - 25 %) 20.0 Phosphorus (2.5 - 4.5 mg/dL) 3.7 Magnesium (1.6 - 2.3 mg/dL) 2.1 Troponin I (< 0.11 ng/ml) < 0.01 C-Reactive Prot, Quant (<1.0 mg/dL) < 0.5 Triglycerides (<150 mg/dL) 88 Cholesterol (<200 MG/DL) 216 H LDL Cholesterol, Calc (65 - 129 mg/dL) 130 H HDL Cholesterol (40 - 60 mg/dL) 69 H Cholesterol/HDL Ratio (0.00 - 4.23 %) 3 TSH (0.270 - 4.200 uIU/mL) 3.660 Free T4 (0.85 - 1.93 ng/dL) 1.05 Thyroxine (T4) (4.5 - 10.9 ug/dL) 7.9 Hematology CBC w Diff NO MAN DIFF REQ WBC (4.8 - 10.8 /CUMM) 5.4 RBC (4.20 - 5.40 /CUMM) 4.34 Hgb (12.0 - 16.0 G/DL) 12.9 Hct (37 - 47 %) 38.7 MCV (81.0 - 99.0 FL) 89.2 MCH (27.0 - 31.0 PG) 29.6 RDW (11.5 - 14.5 %) 13.1 Plt Count (130 - 400 /CUMM) 160 MPV (7.4 - 10.4 FL) 9.6 Gran % (42.2 - 75.2 %) 56.3 Lymphocytes % (20.5 - 51.1 %) 29.6 Monocytes % (1.7 - 9.3 %) 11.6 H Eosinophils % (0 - 5 %) 1.8 Basophils % (0.0 - 2.0 %) 0.7 Absolute Granulocytes (1.4 - 6.5 /CUMM) 3.0 Absolute Lymphocytes (1.2 - 3.4 /CUMM) 1.6 Absolute Monocytes (0.10 - 0.60 /CUMM) 0.6 Absolute Eosinophils (0.0 - 0.7 /CUMM) 0.1 Absolute Basophils (0.0 - 0.2 /CUMM) 0 PUBS MCHC (33.0 - 37.0 G/DL) 33.2 [facility] 08/25 08/24 08/24 0200 1934 1923 Chemistry Sodium (137 - 145 mmol/L) 138 Potassium (3.5 - 5.1 mmol/L) 4.2 Chloride (98 - 107 mmol/L) 102 Carbon Dioxide (22 - 30 mmol/L) 28 Anion Gap (5 - 16) 9 BUN (7 - 17 mg/dL) 23 H Creatinine (0.5 - 1.0 mg/dL) 1.1 H Estimated GFR (>60 ml/min) 48 L BUN/Creatinine Ratio (7 - 25 %) 20.9 Glucose (65 - 99 mg/dL) 91 Calcium (8.4 - 10.2 mg/dL) 9.5 Total Bilirubin (0.2 - 1.3 mg/dL) 0.6 AST (14 - 36 U/L) 26 ALT (9 - 52 U/L) 28 Alkaline Phosphatase (<127 U/L) 84 Troponin I (< 0.11 ng/ml) < 0.01 < 0.01 Total Protein (6.3 - 8.2 g/dL) 7.3 Albumin (3.5 - 5.0 g/dL) 4.5 Globulin (1.9 - 4.2 gm/dL) 2.8 Albumin/Globulin Ratio (1.1 - 2.2 %) 1.6 Coagulation PT (9.4 - 12.5 SEC) 11.1 INR (0.90 - 1.19) 1.06 APTT (25 - 37 SEC) 29 Serology Lyme Disease Antibody Pending Urines Urine Color (YEL,AMB,STR) YEL Urine Clarity (CLEAR) CLEAR Urine pH (5.0 - 8.0) 6.0 Ur Specific [place] (1.001 - 1.035) <= 1.005 Urine Protein (NEG,<30 MG/DL) NEG Urine Ketones (NEG) NEG Urine Nitrite (NEG) NEG Urine Bilirubin (NEG) NEG Urine Urobilinogen (0.1 - 1.0 EU/dl) 0.2 Ur Leukocyte Esterase (NEG) SMALL H Ur Microscopic SEDIMENT EXAMINED Urine RBC (0 - 5 /HPF) RARE Urine WBC (0 - 2 /HPF) 1-3 H Ur Epithelial Cells (NONE,FEW) FEW Urine Bacteria (NEG/NONE) RARE H Urine Hemoglobin (NEG) TRACE-INTACT Urine Glucose (N MG/DL) NEG 08/24 190 Hematology CBC w Diff NO MAN DIFF REQ WBC (4.8 - 10.8 /CUMM) 6.1 RBC (4.20 - 5.40 /CUMM) 4.18 L Hgb (12.0 - 16.0 G/DL) 12.4 Hct (37 - 47 %) 37.2 MCV (81.0 - 99.0 FL) 88.8 MCH (27.0 - 31.0 PG) 29.6 RDW (11.5 - 14.5 %) 13.0 Plt Count (130 - 400 /CUMM) 147 MPV (7.4 - 10.4 FL) 9.2 Gran % (42.2 - 75.2 %) 55.5 Lymphocytes % (20.5 - 51.1 %) 30.6 Monocytes % (1.7 - 9.3 %) 11.2 H Eosinophils % (0 - 5 %) 2.0 Basophils % (0.0 - 2.0 %) 0.7 Absolute Granulocytes (1.4 - 6.5 /CUMM) 3.4 Absolute Lymphocytes (1.2 - 3.4 /CUMM) 1.9 Absolute Monocytes (0.10 - 0.60 /CUMM) 0.7 H Absolute Eosinophils (0.0 - 0.7 /CUMM) 0.1 Absolute Basophils (0.0 - 0.2 /CUMM) 0 PUBS MCHC (33.0 - 37.0 G/DL) 33.3 Urines Ur Random Creatinine (mg/dL) 41.3 Ur Random Microalbumin (<1.7 mg/dl) < 0.6 U Cystine/Creat Ratio (mcg/mg) 14.52 Diagnostic Data EKG Results Sinus rythm. No ischemic changes noted. CXR Results SERVICE DATE: 08/24/16 EXAM TYPE: RAD - XRY-PORTABLE CHEST XRAY EXAMINATION: XR PORTABLE CHEST CLINICAL INFORMATION: Hypertension evaluate for cardiomegaly. COMPARISON: None TECHNIQUE: Portable frontal view of the chest was obtained. FINDINGS: Lung volumes are diminished. Heart does not appear significantly enlarged. No definite infiltrate is seen. IMPRESSION: Low lung volumes limits evaluation, no acute process. DICTATED BY: ISABELLA SKINNER MD Assessment/Plan Assessment/Plan This is a 81-year-old lady with no known cardiac history, a remote smoking hx, and Sjogren's syndrome being her only past medical history presented with hypertensive urgency. Patient required IV labetalol 5 mg x1 after amlodipine 10 mg did not give adequate reduction of her elevated blood pressure. Patient blood pressure has been controlled for the past 2 days with amlodipine 2.5 mg started. There was concern for possible TIA by the medical team due to her right-sided head and vision changes (she did not have any other focal neurological deficit). Impression * Hypertensive urgency * Rule out TIA * History of Sjogren's syndrom Plan 1. Hypertensive urgency has resolved. Patient is asymptomatic with no acute complaints of chest pain , headaches or vision changes. Trended troponins were non elevated, No ischemic changes on EKG, ACS ruled out. Her elevation of creatinine could possibly be secondary to dehydration from her outdoor activities, hypertensive nephropathy is less likely given her controlled BP history and her creatinine level is back to baseline within 1-2 days. Agree with holding off amlodipine 2.5 mg dose for today as patient blood pressure since yesterday has been averaging about 100/60. If patient blood pressure continues to be a borderline low, suggest that patient not be discharged with any BP meds as she is at a greater risk of hypotensive complications. 2. Less likely TIA, with no remarkable focal neurological deficit ever observed by patient or medical staff. However, will perform echo and carotid Doppler. Given the patient's age, and no history of cardiovascular/diabetes/stroke history, there is insufficient evidence regarding the benefit of aspirin for primary prevention/ reduction of heart and stroke risk. Also due to her age, there is limited evidence for statin use in the primary prevention of cardiovascular/ stroke events. In addition, patient is at low cardiac risk, HDL is elevated, and her LDL is already at goal, TC only slight elevated. Consider stopping statin therapy, as her risks such as myalagias and weakness far outweighs than benefits. Problem List: 1. Hypertensive urgency Consult Acknowledgment - Thank you for your consult request. Consult Acknowledgment - Thank you for your consult request.
--- NOTE | 2016-08-26 10:05 | PN-Observation ---
See Addendum Observation Note Observation Note _ I have personally examined YARIEL DUPONT. her disposition is uncertain at this time. Before a determination can be made, she requires continued observation for the following reasons neurological symptoms in the setting of hypertensive urgency. Assessment/Plan Assessment: ASSESSMENT 81 year old female with PMH SJOGRENS presents with sudden onset of right sided headache and ear numbness and tingling for 10 minutes, hypertension 187/89 and brief visual change. Admitted for management of hypertensive urgency vs TIA vs giant cell arteritis. 1. HYPERTENSIVE URGENCY VS TIA VS GIANT CELL ARTERITIS 2. CONSTIPATION 3. ABNORMAL KIDNEY FUNCTION CR 1.1 Problem List: 1. Hypertensive urgency 2. Constipation 3. Abnormal kidney function Plan: PLAN 1: TIA VS HYPERTENSIVE URGENCY VS GIANT CELL ARTERITIS: HTN IN SETTING OF HEADACHE AND ELEVATED CR. CT head negative for hemorrage and normal neurological exam at the time of physical exam in the ED. LVH ON EKG POSSIBLY UNDIAGNOSED HTN. Patient never describes a focal neurological deficit in the history or a history of high blood pressure BUT TODAY NOTES THAT FOR THE PAST 3 YEARS SHE DOES NOT SLEEP ON HER RIGHT SIDE BECAUSE OF REPRODUCIBLE EAR TINGLING AND NUMBNESS. Hypertensive to 187/89 in ED. Troponins negative x3. Given metoprolol and labetolol to good effect. STARTED IN THE ED ON NORVASC 10MG BUT TODAY WAS FOUND TO HAVE BP 105/61. As per cardiology: Given the patient's age, and no history of cardiovascular,diabetes or stroke history, there is insufficient evidence regarding the benefit of aspirin for primary prevention/ reduction of heart and stroke risk. -Continue to monitor vital signs and cardiac rhythm -CONTINUE TO HOLD NORVASC IF SYSTOLIC LESS THAN 140. -Wait for results re: echo and carotid doppler -Cholesterol 216, LDL 130, HDL 69. As per cardiology: Also due to her age, there is limited evidence for statin use in the primary prevention of cardiovascular/ stroke events. In addition, patient has low cardiac risk factors, HDL is elevated, and her LDL is already at goal with only slight elevation of total cholesterol. Consider stopping statin therapy, as her risks such as myalagias and weakness far outweighs than benefits. -TFT normal -Monitor neurochecks if patient develops neurological symptoms -ESR 20 - DOES NOT SUPPORT GCA 2. Constipation: Dulcolax and Senna 3. Abnormal creatinine: RESOLVED creatinine .9 currently. 1.1 7/4 could be 2/2 dehydration. -If renal function improves can consider MERA therapy for outpatient management of HTN (if she continues to have low BP, consider discharging without any meds as per cardiology) Heart healthy diet DVT ppx-heparin subq Full code DVT/Prophylaxis: pharmacological Consulting Request: Consulting Specialty: Cardiology Discharge Plan Discharge Disposition: home Subjective Follow-up For: HYPERTENSIVE URGENCY VS TIA VS GCA Complaints: no complaints Tele-Events Since Last Visit: nsr 63-86 with inconsistent BBB Subjective: Patient was examined at the bedside and has no complaints. Was sitting in bed comfortable eating breakfast. Review of Systems Constitutional: Reports: no symptoms. EENTM: Reports: no symptoms. Cardiovascular: Reports: no symptoms. Respiratory: Reports: no symptoms. Gastrointestinal: Reports: no symptoms. Genitourinary: Reports: no symptoms. Musculoskeletal: Reports: no symptoms. Skin: Reports: no symptoms. Neurological/Psychological: Reports: no symptoms. Hematologic/Endocrine: Reports: no symptoms. Immunologic/Allergic: Reports: no symptoms. Objective Last 24 Hrs of Vital Signs/I&O Vital Signs Date Time Temp Pulse Resp B/P B/P Pulse O2 O2 Flow FiO2 Mean Ox Delivery Rate 08/26 0728 97.8 75 18 100/62 94 Room Air / 2220 98.1 73 14 100/62 96 Room Air 07/04 1600 97 Room Air 07/04 1510 98.6 76 20 104/70 95 Room Air Intake & Output 07/05 1600 07/05 0800 07/05 0000 Intake Total Output Total Balance Number 1 Bowel Movements Physical Exam General Appearance: Alert, Oriented X3, Cooperative, No Acute Distress Skin: No Rashes, No Breakdown, No Significant Lesion Skin Temp/Moisture Exam: Warm/Dry Sepsis Skin Exam (color): Normal for Ethnicity HEENT: Atraumatic, PERRLA, EOMI, Mucous Membr. moist/pink Neck: Supple, No thryomegaly Cardiovascular: Regular Rate, Normal S1, Normal S2, No Murmurs, Gallops, Rubs Lungs: Clear to Auscultation Abdomen: Normal Bowel Sounds, Soft, No Tenderness Neurological: Normal Speech, Strength at 5/5 X4 Ext, Sensation Intact Extremities: No Clubbing, No Cyanosis, No Edema Vascular: Normal Pulses Sepsis Peripheral Pulse Location: Radial Sepsis Peripheral Pulse Exam: Normal Other Physical Findings: No right sided head tenderness on palpation Current Medications: Current Medications Sig/[place] Start time Last Medication Dose Route Stop Time Status Admin Acetaminophen 650 MG Q6P PRN 08/25 0045 AC PO Acetaminophen/ 1 TAB Q6P PRN 08/25 0045 AC Hydrocodone Bitart PO Amlodipine Besylate 2.5 MG DAILY 08/26 1000 AC PO Amlodipine Besylate 10 MG DAILY 08/25 1000 DC 08/25 PO 0946 Aspirin Buffered 81 MG DAILY 08/25 1000 AC 08/26 PO 1017 Atorvastatin Calcium 40 MG 1700 08/25 1700 AC 08/25 PO 1637 Heparin Sodium 5,000 UNIT Q8 08/25 0039 AC (Porcine) SC Oxycodone HCl 10 MG Q6P PRN 08/25 0045 AC PO Senna/Docusate Sodium 2 TAB DAILY 08/25 0015 AC 08/26 PO 1017 Last 24 Hrs of Labs/Mics: Laboratory Tests 08/26/16 1033: ESR [place] 20
--- NOTE | 2016-08-26 14:25 | ULTRASOUND REPORT ---
EXAMINATION: DUPLEX BILATERAL CAROTID ULTRASOUND CLINICAL INFORMATION: Transient vision loss COMPARISON: None. TECHNIQUE: Duplex bilateral carotid US was performed using real-time ultrasound and Doppler techniques (integrating B-mode 2D vascular images, Doppler spectral analysis and color flow Doppler imaging). These techniques were utilized to interrogate the extracranial carotid and vertebral arteries bilaterally. The degree of stenosis is based off criteria similar to NASCET. FINDINGS: 1. On the right: Plaque is present at the carotid bifurcation but velocity measurements are normal and do not suggest a stenosis of greater than 50% diameter reduction in the right ICA. The right external carotid artery shows no significant stenosis. The vertebral artery is patent demonstrating antegrade flow. 2. On the left: Plaque is present at the carotid bifurcation but velocity measurements are normal and do not suggest a stenosis of greater than 50% diameter reduction in the left ICA. The left ECA demonstrates a mild stenosis with peak systolic velocity of under 200 cm/s. The vertebral artery is patent demonstrating antegrade flow. IMPRESSION: Plaque is present in the internal carotid arteries but velocity measurements are normal and there is no evidence to suggest a hemodynamically significant stenosis of greater than 50% diameter reduction.
--- NOTE | 2016-08-26 14:30 | Patient Discharge Instructions ---
Discharge Instructions General Discharge Information You were seen/treated for: HYPERTENTENSIVE URGENCY Special Instructions: 1. PLEASE F/U WITH YOUR PCP WITHIN 1 WEEK OF DISCHARGE Diet Recommended Diet: Regular no added salt Activity Full Activity/No Limits: Yes ( TOLERATED) Acute Coronary Syndrome Inclusion Criteria At DC or during hospital stay patient has or had the following: ACS DIAGNOSIS No Discharge Core Measures Meds if any: Prescribed or Continued at Discharge Meds if any: NOT Prescribed or Continued at Discharge Congestive Heart Failure Inclusion Criteria At DC or during hospital stay patient has or had the following: CHF DIAGNOSIS No Discharge Core Measures Meds if any: Prescribed or Continued at Discharge Meds if any: NOT Prescribed or Continued at Discharge Cerebrovascular accident Inclusion Criteria At DC or during hospital stay patient has or had the following: CVA/TIA Diagnosis No Discharge Core Measures Meds if any: Prescribed or Continued at Discharge Meds if any: NOT Prescribed or Continued at Discharge Venous thromboembolism Inclusion Criteria VTE Diagnosis No VTE Type NONE VTE Confirmed by (Test) NONE Discharge Core Measures - Per Current guidelines, there needs to be overlap - treatment for the first 5 days of Warfarin therapy. - If discharged on Warfarin prior to 5 days of - overlap therapy, the patient will need to be - assessed for post discharge needs including - *Post discharge parental anticoagulation - *Warfarin and/or parental anticoagulation education - *Follow up date to check INR post discharge At least 5 days overlap therapy as Inpatient No Meds if any: Prescribed or Continued at Discharge Note: Overlap Therapy is Warfarin and Anticoagulant Meds if any: NOT Prescribed or Continued at Discharge
[2016-08-26 15:15] VITALS: BP 122/74
--- NOTE | 2016-08-26 17:44 | Discharge Summary ---
Visit Information Visit Dates Admission Date: 08/24/16 Discharge Date: 08/26/16 Hospital Course Course Attending Physician: HOLGER BARROW MD Primary Care Physician: BAUDILIO CONWAY,RAGHU Pulido Consulting Request: Consulting Specialty: Cardiology Hospital Course: This is an 81 year old woman with a PMH significant for Sjogrens syndrome that presented on 08/25/15 with a sudden onset of a right sided headache and tingling and numbness of her right ear. She also complained of loss of vision clariy around that time as well. She describes spending the morning before the incident outside in the heat, mowing her lawn and after she awoke from a nap afterwards, experienced these symptoms. The episode lasted approximatley 10 minutes and when she checked her blood pressure at home, she noticed it was 185/ 90 and decided to come to the ED. Upon examination she had no lingering symptoms but did complain of some recent constipation. She denied any neurological symptoms, slurred speech, trouble walking, falls or extremity weakness, photo or phonophobia. She denied increase in salt intake. She notes anxiety and depression regarding the of her 2 months ago. In the ED she was started on 10mg Norvasc, and given an aspirin. As her blood pressure continued to be high, she was given a dose of labetolol 5mg IV to good effect. An EKG showed NSR and LVH A CXR showed diminished lung volumes but was otherwise unremarkable A CT Head showed no acute intracranial pathology. She was admitted to [facility] for monitoring of hypertensive urgency vs TIA vs GCA. The goal was to reduce MAP by 20% over 24 hours. Her blood pressure decreased during her admission to 100/60 and because of this, the norvasc was held only to be restarted with systolic pressures greater than 140. She was found to have a creatinine of 1.1 upon admission which decreased to .9 the next day and was attributed to dehydration. TROPONINS AND EKGS were negative. Her TFTs showed no abnormalities. Her lipids showed high cholesterol to 213 but a cardiology consultation recommended not starting statins or ASA. A carotid doppler showed plaque is present in the internal carotid arteries but there is no evidence to suggest a hemodynamically significant stenosis of greater than 50% diameter reduction. An echo showed a calicified mitral valve annulus and normal age related changes. Constipation was treated with SENNA Pt was discharged with instruction to followup with fuel tank sealer and tester. Allergies: Coded Allergies: cefaclor (UNKNOWN MD TOLD PT SHE IS ALLERGIC 08/24/16) epinephrine (HEART RACES 08/24/16) erythromycin base (UNKNOWN PER PT 08/24/16) Significant Procedures: CAROTID DOPPLER Plaque is present in the internal carotid arteries but velocity measurements are normal and there is no evidence to suggest a hemodynamically significant stenosis of greater than 50% diameter reduction. Disposition Summary Disposition Principal Diagnosis: HYPERTENSIVE URGENCY Additional Diagnosis: CONSTIPATION Discharge Disposition: home or self care Discharge Instructions General Discharge Information Code Status: Full Code Patient's Diet: NO ADDED SALT Patient's Activity: TOLERATED Follow-Up Instructions/Appts: PLEASE SEE IS SUPPORT ANALYST WITHIN ONE WEEK OF DISCHARGE Medications at Discharge Discharge Medications: Stop taking the following medications: Aspirin (Ecotrin*) 81 MG TABLET.DR ORAL DAILY Mag Hydrox/Al Hydrox/Simeth (Maalox Advanced Suspension) (Unknown Strength) ORAL.SUSP ORAL as needed for INDIGESTION Continue taking these medications: Cholecalciferol (Vitamin D3) (Vitamin D) 2,000 UNIT CAPSULE 2 Capsule ORAL DAILY Comments: Last Taken: NOT GIVEN AT HOSPITAL Time: Acetaminophen (Tylenol Extra Strength) 500 MG TABLET 2 Tablet ORAL DAILY as needed for PAIN Comments: NOT GIVEN AT HOSPITAL [BAKING SODA] 0.25 Teaspoonful ORAL as needed for INDIGESTION Comments: NOT GIVEN AT HOSPITAL Copies To: HOLGER BARROW MD; REYES CONWAY,REGGIE Attending MD Review Statement Documenting Attending: HOLGER BARROW MD Other Findings: The patient was seen on the day of discharge. Initially she had been begun on Amlodipine 10 mg daily and her BP dropped to 106 systolic. This was discontinued. Carotid US and ECHO showed no significant pathology (some valvular calcification). She was discharged to home in good condition with plan to follow her BP at home (Patient has BP cuff) and follow-up with PCP in 1 week (Dr. Ashton ).
--- NOTE | 2016-08-27 12:33 | ECHOCARDIOGRAM REPORT ---
YARIEL DUPONT Age: 81 : 1935 Gender: F Exam Date: 08/26/2016 13:17 Exam Location: [facility] Ht (in): 64 Wt (lb): 167 BSA: 1.87 BP: 100 / 62 Ordering Physician: MIN TAYLOR MD Referring Physician: MIN TAYLOR MD Technologist: Adrian Bowers [facility] Room Number: 185 room 1 Indications: HYPERTENSION Rhythm: Sinus Technical Quality: Fair FINDINGS Left Ventricle Normal size left ventricle. No obvious regional wall motion abnormalities. Normal left ventricular ejection fraction estimated at 55-60%. Right Ventricle Right ventricle not well visualized, grossly normal. Right Atrium Normal right atrial size. Left Atrium Left atrial size at the upper limits of normal. Mitral Valve Mitral valve thickened. Moderate mitral annular calcification. Trace mitral regurgitation. Aortic Valve Trileaflet aortic valve. Diffuse thickening (sclerosis) of the aortic valve cusps without reduced excursion. No aortic stenosis. Mild aortic regurgitation. Tricuspid Valve Tricuspid valve not well visualized, grossly normal. Trace tricuspid regurgitation. Pulmonic Valve Pulmonic valve not well visualized, grossly normal. Pericardium No pericardial effusion. Great Vessels Aortic root and proximal ascending aorta not well visualized, grossly normal. CONCLUSIONS 1. Mild to moderate aortic sclerosis is present with mild aortic insufficiency. 2. Mitral leaflet thickening is present with moderate anular calcification and minimal mitral insufficiency. 3. There is no pericardial fluid present. 4. The left ventricular chamber size and systolic function appear normal. 5. Minimal tricuspid insufficiency is present with no evidence of pulmonary hypertension. Lam Tellez M.D. (Electronically Signed) Final Date: 27 August 2016 12:32 MEASUREMENTS (Male / Female) Normal Values 2D ECHO LV Diastolic Diameter PLAX 3.7 cm 4.2 - 5.9 / 3.9 - 5.3 cm LV Systolic Diameter PLAX 2.7 cm 2.1 - 4.0 cm LV Fractional Shortening PLAX 27.0 % 25 - 46 % LV Ejection Fraction 2D Teich 53.5 % IVS Diastolic Thickness 0.8 cm LVPW Diastolic Thickness 0.8 cm LV Relative Wall Thickness 0.4 RV Internal Dim ED PLAX 2.9 cm 1.9 - 3.8 cm LVOT Diameter 2.2 cm Aortic Root Diameter 2.5 cm LA Systolic Diameter LX 2.8 cm 3.0 - 4.0 / 2.7 - 3.8 cm LV Ejection Fraction MOD BP 68.5 % >= 55 % LV Diastolic Length 4C 6.0 cm 6.9 - 10.3 cm LV Diastolic Area 4C 22.3 cm LV Diastolic Volume MOD 4C 67.0 cm LV Ejection Fraction MOD 4C 67.2 % LV Stroke Volume MOD 4C 45.0 cm LV Systolic Length 4C 5.7 cm LV Systolic Area 4C 12.2 cm LV Systolic Volume MOD 4C 22.0 cm LV Ejection Fraction MOD 2C 66.2 % LV Diastolic Volume 4C AL 69.9 cm 85 - 139 / 69 - 109 cm LV Systolic Volume 4C AL 22.2 cm LV Ejection Fraction 4C AL 68.2 % LV Stroke Volume 4C AL 47.6 cm LV Ejection Fraction 2C AL 64.1 % DOPPLER AV Peak Velocity 138.0 cm/s AV Peak Gradient 7.6 mmHg LVOT Peak Velocity 108.0 cm/s LVOT Peak Gradient 4.7 mmHg AV Area Cont Eq pk 3.0 cm Mitral E Point Velocity 71.6 cm/s Mitral A Point Velocity 146.0 cm/s Mitral E to A Ratio 0.5 MV Deceleration Time 211.0 ms PV Peak Velocity 127.0 cm/s PV Peak Gradient 6.5 mmHg LV E' Lateral Velocity 6.8 cm/s Mitral E to LV E' Lateral Ratio 10.5 LV E' Septal Velocity 5.8 cm/s Mitral E to LV E' Septal Ratio 12.5
== END 2016-08-26 16:51 ==
LOC: ERH 18:20 → ERHI 21:37 → 1NO 21:37 → ENRESERV 22:38 → 1NO 08-25 00:06 → ENPENDDIS 08-26 16:07 → 1NO 08-26 16:51
PROVIDERS: Internal Medicine; Physician Assistant; ADMIT Student in an Organized Health Care Education/Training Program
DX: I10 Essential (primary) hypertension (principal); M35.00 Sjogren syndrome, unspecified; K59.00 Constipation, unspecified; Z87.891 Personal history of nicotine dependence; N28.89 Other specified disorders of kidney and ureter; I65.23 Occlusion and stenosis of bilateral carotid arteries
CPT/HCPCS: 86618; 36415; 81001; 82436; 82570; 87086; 93005; 93010; 93306; 96374; G0378; J1644; J3490

== ENCOUNTER 2017-05-22 11:58 | Emergency (ER) | payer OTHER, MEDICARE ==
[~2017-05-22] VITALS: Ht 162.6 cm; Wt 74.8 kg
[~2017-05-22 11:58] MED LIST: ASPIRIN EC81 M1 PO; BAKING SODA PO; MAALOX ADVANCE355 M2 PO; TYLENOL EXTRA500 M2 PO; VITAMIN D2000 UNIT PO
--- NOTE | 2017-05-22 12:24 | ED NEURO DEFICIT/STROKE ---
History of Present Illness General Chief Complaint: General Adult Stated Complaint: PER PT THINKS HAVING STROKE Source: patient, family Exam Limitations: no limitations Vital Signs & Intake/Output Vital Signs & Intake/Output Vital Signs Date Time Temp Pulse Resp B/P B/P Pulse O2 O2 Flow FiO2 Mean Ox Delivery Rate 05/22 1252 98 Room Air 05/22 1206 97.4 97 16 196/101 97 Room Air Allergies Coded Allergies: cefaclor (UNKNOWN MD TOLD PT SHE IS ALLERGIC 08/24/16) epinephrine (HEART RACES 08/24/16) erythromycin base (UNKNOWN PER PT 08/24/16) Reconcile Medications Aspirin (Ecotrin*) 81 MG TABLET.DR 1 TAB PO DAILY HEART/BLOOD (Reported) Cholecalciferol (Vitamin D3) (Vitamin D) 2,000 UNIT CAPSULE 2 CAP PO DAILY SUPPLEMENT (Reported) Triage Note: PT PRESENTS TO THE ER WITH LEFT SIDED FACIAL REDNESS AND RIGHT SIDE FACIAL NUMBNESS. PT STATES SYMPTOMS STARTED 1 HOUR AGO. PT STATES THAT HER LEFT HAND IS SHAKY. GCS 15 Triage Nurses Notes Reviewed? yes HPI: This is an 82-year-old female with no significant past HISTORY who takes vitamin D and a baby aspirin on her own presents to the ER with chief complaint of feeling of warmth in her left cheek and questionable numbness in the right cheek around 10:00 this morning while she was watching TV. No headache or blurred vision. No confusion weakness numbness or tingling in the rest of her body. Symptoms have come and gone. She still feels a little bit of heat in her left cheek. No recent trauma or fall. She did take her aspirin this morning. Her daughter brought her in for evaluation to make sure it wasn't a stroke. Patient reports some pain in bilateral thighs that have been there for the past few months. She states that she had a fall into a soft snowbank about 2 weeks ago but doesn't relate the pain in her thigh to that. She is awake and alert and oriented 3. Past History Travel History Traveled to [place] past 21 day No Medical History Any Pertinent Medical History? see below for history Neurological: NONE EENT: NONE Cardiovascular: hypertension Respiratory: NONE Gastrointestinal: NONE Hepatic: NONE Renal: NONE Musculoskeletal: NONE Psychiatric: NONE Endocrine: NONE Blood Disorders: NONE Cancer(s): NONE AD OPERATIONS SPECIALIST/Reproductive: NONE History of MRSA: No History of VRE: No History of CDIFF: No Surgical History Surgical History: none (pilonodal cyst), non-contributory Psychosocial History What is your primary language French Tobacco Use: Quit >30 days ago Family History Family History, If Any: MOTHER FH: uterine cancer Hx Contributory? No Review of Systems Review of Systems Constitutional: Denies: chills, fever. EENTM: Reports: no symptoms. Respiratory: Denies: cough, short of breath. Cardiovascular: Denies: chest pain, palpitations. GI: Denies: abdominal pain. Genitourinary: Denies: dysuria. Musculoskeletal: Denies: back pain. Skin: Reports: no symptoms. Neurological/Psychological: Reports: numbness (RIGHT FACIAL). Hematologic/Endocrine: Denies: bruising, bleeding, polyuria, polydipsia. Immunologic/Allergic: Denies: splenectomy. All Other Systems: Reviewed and Negative Physical Exam Physical Exam General Appearance: well developed/nourished, alert, awake Head: atraumatic, normal appearance Eyes: Bilateral: normal appearance, PERRL, EOMI. Ears, Nose, Throat: normal ENT inspection, moist mucous membrane, hearing grossly normal, Tympanic normal, pharynx normal Neck: normal inspection, supple, full range of motion Respiratory: normal breath sounds, chest non-tender, no respiratory distress Cardiovascular: regular rate/rhythm, normal peripheral pulses Peripheral Pulses: 2+ radial (R), 2+ radial (L) Gastrointestinal: normal bowel sounds, soft, non-tender Back: normal inspection, normal range of motion Extremities: normal range of motion Psychiatric: awake, alert, oriented x 3 Cranial Nerves: normal hearing, normal speech, PERRL Coordination/Gait: normal finger to nose Motor/Sensory: motor deficit Skin: intact, normal color, warm/dry, LEFT CHEEK ERYTHEMA Core Measures CVA/TIA Diagnosis: No Sepsis Present: No Sepsis Focused Exam Completed? No Progress Differential Diagnosis: intracranial Hem., intracranial mass/tumor, TIA, CVA, , BELLS PALSY, STI Plan of Care: Orders Procedure Date/time Status C-REACTIVE PROTEIN 05/22 1314 Complete Telemetry/Delivery Representative 05/22 1233 Active TROPONIN LEVEL 05/22 1215 Complete PARTIAL THROMBOPLASTIN TIME 05/22 1215 Complete PROTHROMBIN TIME 05/22 1215 Complete COMPREHENSIVE METABOLIC PANEL 05/22 1215 Complete CBC WITHOUT DIFFERENTIAL 05/22 1215 Complete EKG 05/22 1212 Active Laboratory Tests 05/22/17 1314: Anion Gap 11, Estimated GFR > 60, BUN/Creatinine Ratio 20.0, Glucose 99, Calcium 9.9, Total Bilirubin 0.6, AST 17, ALT 17, Alkaline Phosphatase 83, Troponin I < 0.01, C-Reactive Prot, Quant 0.8, Total Protein 7.4, Albumin 4.2, Globulin 3.2, Albumin/Globulin Ratio 1.3, PT 12.0, INR 1.10, APTT 29, CBC w Diff NO MAN DIFF REQ, RBC 4.13 L, MCV 87.3, MCH 29.0, MCHC 33.3, RDW 13.3, MPV 8.8, Gran % 69.2, Lymphocytes % 18.9 L, Monocytes % 10.2 H, Eosinophils % 1.3, Basophils % 0.4, Absolute Granulocytes 4.4, Absolute Lymphocytes 1.2, Absolute Monocytes 0.6, Absolute Eosinophils 0.1, Absolute Basophils 0 05/22/17 1233: C-Reactive Prot, Quant Cancelled, Urine Color Cancelled, Urine Clarity Cancelled , Urine pH Cancelled, Ur Specific Boulevard Cancelled, Urine Protein Cancelled, Urine Ketones Cancelled, Urine Nitrite Cancelled, Urine Bilirubin Cancelled, Urine Urobilinogen Cancelled, Ur Leukocyte Esterase Cancelled, Ur Microscopic Cancelled, Urine Hemoglobin Cancelled, Urine Glucose Cancelled WORK UP IS UNREVEALING. PATIENT ANXIOUS TO GO HOME. NO LONGER FEELING NUMB. AMBULATORY IN THE ED WITHOUT ANY DIFFICULTY. DAUGHTER AT BEDSIDE, WILL TAKE HER HOME. PCP FOLLOW UP ADVISE. CLEAR RETURN INSTRUCTIONS GIVEN. Diagnostic Imaging: Viewed by Me: CT Scan. Discussed w/RAD: CT Scan. Radiology Impression: PATIENT: YARIEL DUPONT PRESENT AGE: 82 PATIENT ACCOUNT NO: [id number] : 36 LOCATION: [facility] ORDERING PHYSICIAN: Ronaldo Jones MD SERVICE DATE: 05/22/17 EXAM TYPE: CAT - CT HEAD WO IV CONTRAST EXAMINATION: CT HEAD WITHOUT CONTRAST CLINICAL INFORMATION: Stroke. Left-sided facial numbness. COMPARISON: CT head 08/24/2016. TECHNIQUE: Contiguous axial imaging was performed from the skull base to vertex without intravenous administration of contrast. DLP: 546.55 mGy-cm FINDINGS: There is no acute intracranial hemorrhage or abnormal extra-axial collection. No intracranial mass effect or midline shift. Lateral and third ventricles are proportionate to the subarachnoid spaces. No hydrocephalus. There are ill- defined foci of hypoattenuation throughout the periventricular white matter that most likely represent a chronic manifestation of small vessel ischemia. Horowitz- white matter differentiation is otherwise grossly intact and there is no evidence acute territorial infarct. The calvarium and skull base are intact. Mastoid air cells and middle ear cavities are well aerated. Visualized paranasal sinuses are well-aerated. IMPRESSION: There are numerous chronic small vessel ischemic changes within the periventricular white matter. No evidence of acute territorial infarct or hemorrhage. This critical result was discussed with Dr Myra Velez at 05/22/2017 12:36 PM and it was ascertained that the content and urgency of the report was understood at the time of direct communication. DICTATED BY: Steven Raymundo MD DATE/TIME DICTATED:05/22/171229 TRAY DELIVERY AIDE:ZEV DATE/TIME TRANSCRIBED:05/22/171229 CONFIDENTIAL, DO NOT COPY WITHOUT APPROPRIATE AUTHORIZATION. <Electronically signed in Other Vendor System> SIGNED BY: Steven Raymundo MD 05/22/17 1243 Initial ED EKG: NSR Departure Departure Time of Disposition: 1433 Disposition: HOME OR SELF CARE Condition: Stable Clinical Impression Primary Impression: Right facial numbness Referrals: Anne Morrissey DO, MD,Jonah Donnelly MD,Yesy Wang MD,Juan Ashton MD,Jordan Pulido (PCP/Family) Rosa CONWAY,Yeimy Salguero Additional Instructions: Follow-up with your primary care doctor in the office or one of the doctors listed as he requested. Follow up with outpatient lower extremity ultrasound to rule out clots. Return to the ER for any changing or worsening symptoms. Departure Forms: Customer Survey General Discharge Information
--- NOTE | 2017-05-22 12:43 | CT SCAN REPORT ---
EXAMINATION: CT HEAD WITHOUT CONTRAST CLINICAL INFORMATION: Stroke. Left-sided facial numbness. COMPARISON: CT head 08/24/2016. TECHNIQUE: Contiguous axial imaging was performed from the skull base to vertex without intravenous administration of contrast. DLP: 546.55 mGy-cm FINDINGS: There is no acute intracranial hemorrhage or abnormal extra-axial collection. No intracranial mass effect or midline shift. Lateral and third ventricles are proportionate to the subarachnoid spaces. No hydrocephalus. There are ill-defined foci of hypoattenuation throughout the periventricular white matter that most likely represent a chronic manifestation of small vessel ischemia. Horowitz-white matter differentiation is otherwise grossly intact and there is no evidence acute territorial infarct. The calvarium and skull base are intact. Mastoid air cells and middle ear cavities are well aerated. Visualized paranasal sinuses are well-aerated. IMPRESSION: There are numerous chronic small vessel ischemic changes within the periventricular white matter. No evidence of acute territorial infarct or hemorrhage. This critical result was discussed with Dr Myra Velez at 05/22/2017 12:36 PM and it was ascertained that the content and urgency of the report was understood at the time of direct communication.
[2017-05-22 13:33] LABS: PTT 29 SEC (25-37)
[2017-05-22] MEDS ORDERED: ASPIRIN EC81 M1 PO (13:33)
[2017-05-22 13:34] LABS: ABSOLUTE BASOPHIL COUNT 0 /CUMM (0.0-0.2); ABSOLUTE EOSINOPHIL COUNT 0.1 /CUMM (0.0-0.7); ABSOLUTE GRANULOCYTE CT 4.4 /CUMM (1.4-6.5); ABSOLUTE LYMPH COUNT 1.2 /CUMM (1.2-3.4); ABSOLUTE MONOCYTE COUNT 0.6 /CUMM (0.10-0.60); BASOPHIL % 0.4 % (0.0-2.0); EOSINOPHIL % 1.3 % (0-5); GRANULOCYTE % 69.2 % (42.2-75.2); MEAN CORPUSCULAR HGB CONC 33.3 G/DL (33.0-37.0); MEAN CORPUSCULAR VOLUME 87.3 FL (81.0-99.0); MEAN PLATELET VOLUME 8.8 FL (7.4-10.4); PLATELET COUNT 164 /CUMM (130-400); RBC DISTRIBUTION WIDTH 13.3 % (11.5-14.5); RED BLOOD CELL CT 4.13 /CUMM (4.20-5.40); WHITE BLOOD CELL COUNT 6.3 /CUMM (4.8-10.8)
[2017-05-22 14:47] VITALS: BP 176/92
== END 2017-05-22 14:48 ==
LOC: ERH 11:58
PROVIDERS: Internal Medicine
DX: R20.0 Anesthesia of skin (principal)
CPT/HCPCS: 93005; 93010